=== PATIENT | female | born 2000 | race Caucasian/White ===

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

== ENCOUNTER 2019-08-28 02:36 | Emergency (ER) | payer BC ==
[~2019-08-28] VITALS: Ht 165.1 cm; Wt 60.1 kg
--- NOTE | 2019-08-28 02:53 | NUR ---
PT TO ROOM, REFUSING TO GIVE UP VAPE AND PHONE. EXPLAINED TO PT THAT WE ARE NOW RESPONSIBLE FOR HER SAFETY UNTIL SHE IS ASSESSED BY THE MD. PT IS NOT COOPERATIVE WITH CARE AND STATES SHE WANTS TO LEAVE. EXPLAINED TO PT AGAIN THAT BY SAYING SHE WAS SUICIDAL THAT WE HAD TO HAVE THE MD EVALUATE HER BEFORE RELEASING HER FOR HER OWN SAFETY.
[2019-08-28 03:12] LABS: BASOPHILS # (AUTO) 0.03 x10^3/uL (0-0.3); BASOPHILS % (AUTO) 0 % (0-1); EOSINOPHILS # (AUTO) 0.02 x10^3/uL (0-0.8); EOSINOPHILS % (AUTO) 0 % (1-7); LYMPHOCYTES # (AUTO) 2.48 x10^3/uL (1-6.1); LYMPHOCYTES % (AUTO) 34 % (22-44); MD NO; MEAN CORPUSCULAR HEMOGLOBIN 29.2 pg (27.0-34.8); MEAN CORPUSCULAR HGB CONC 32.9 g/dL (32.4-35.8); MEAN CORPUSCULAR VOLUME 88.9 fL (80-100); MEAN PLATELET VOLUME 8.9 fL (7.4-10.4); MONOCYTES # (AUTO) 0.31 x10^3/uL (0-1.4); MONOCYTES % (AUTO) 4 % (2-9); NEUTROPHILS % (AUTO) 61 % (42-75); PLATELET COUNT 328 x10^3/uL (130-400); RED CELL DISTRIBUTION WIDTH 13.5 % (9.6-15.2)
[2019-08-28 03:23] LABS: ALBUMIN 4.3 g/dL (3.4-5.0); ANION GAP 6 mmol/L (5-15); CALCIUM 9.4 mg/dL (8.5-10.1); CHLORIDE 107 mmol/L (98-107)
[2019-08-28 03:24] LABS: SALICYLATE LEVEL < 1.7 mg/dL (2.8-20.0)
[2019-08-28 03:29] LABS: ALANINE AMINOTRANSFERASE 19 U/L (12-78); ALKALINE PHOSPHATASE 81 U/L (45-117); BILIRUBIN,TOTAL 0.2 mg/dL (0.2-1.0); CREATININE 0.79 mg/dL (0.55-1.02); TOTAL PROTEIN 8.6 g/dL (6.4-8.2)
--- NOTE | 2019-08-28 03:33 | NUR ---
PT HAS BEEN SEEN BY . URINE SENT TO LAB. ROOM SECURED. PER , PT ALLOWED TO STAY IN [facility]RE[facility] UNTIL DETERMINED IF RISK TO SELF.
[2019-08-28] MEDS ORDERED: ESCI20TA10 PO (03:37)
[2019-08-28] MEDS ORDERED: LAMO100T7 PO (03:37)
--- NOTE | 2019-08-28 03:37 | NUR ---
SITTER IN VIEW OF PT, POC DISCUSSED WITH PT.
[2019-08-28 04:01] LABS: AMPHETAMINE SCREEN, URINE Negative (Negative); BARBITURATE SCREEN, URINE Negative (Negative); BENZODIAZEPINE SCREEN, URINE Negative (Negative); CANNABINOID SCREEN, URINE Negative (Negative); COCAINE SCREEN, URINE Negative (Negative); METHADONE SCREEN, URINE Negative (Negative); OPIATE SCREEN, URINE Negative (Negative)
--- NOTE | 2019-08-28 04:05 | NUR ---
PT ASKING TO LEAVE. STATED, "I HAVE THOUGHT THINGS OVER AND I AM NOT SUICIDAL ANYMORE". ERP AWARE, STATED PT NEEDS TO SOBER UP BEFORE SHE CAN BE RE-EVALUATED. EXPLAINED THIS TO PT. PT AGREEABLE AT THIS TIME TO REMAIN HERE TILL KEE UP. PT AWARE THIS CAN TAKE SEVERAL HOURS TO METABOLIZE. PT GIVEN CALL LIGHT TO WATCH TV. SITTER AT DOOR WATCHING PT.
--- NOTE | 2019-08-28 05:18 | NUR ---
MOTHER CALLED TO CHECK ON PT STATUS. PT SLEEPING BUT EASILY AWOKEN. MADE AWARE MOTHER CALLED. MOTHER'S PHONE NUMBER [phone] (ISI).
--- NOTE | 2019-08-28 06:57 | NUR ---
Bedside report from Thelma BARKER, pt care assumed at this time. Pt in bed in suicide secured room w/ sitter at doorway, NAD, breakfast tray ordered. Awaiting re-evaluation once pt is sober & dispo. WCTM.
[2019-08-28 08:00] VITALS: BP 125/65
== END 2019-08-28 08:02 | disposition home or self-care (01) ==
LOC: ED 05:29
DX: R45.851 Suicidal ideations (principal); F41.1 Generalized anxiety disorder; F33.9 Major depressive disorder, recurrent, unspecified
CPT/HCPCS: 36415; 80053; 80307; 84703; 85025; 99284

== ENCOUNTER 2020-05-15 02:38 | Emergency (ER) | payer BC ==
[~2020-05-15] VITALS: Ht 165.1 cm; Wt 62.5 kg
[~2020-05-15 02:38] MED LIST: ESCI20TA10 PO; LAMO100T7 PO
[2020-05-15 02:41] VITALS: BP 107/59
--- NOTE | 2020-05-15 03:23 | NUR ---
X-RAY HELD AT 0315 DUE TO PT WANTING TO CALL HER FATHER TO CONFIRM SHE SHOULD GET IT. NO SIGNS OF ACUTE DISTRESS.
--- NOTE | 2020-05-15 03:29 | NUR ---
PT AMBULATORY TO BATHROOM, STEADY GAIT.
--- NOTE | 2020-05-15 03:35 | NUR ---
PT REFUSED XRAY. ERP AND THIS RN BACK TO BEDSIDE TO GIVE EXTENSIVE EDUCATION ABOUT MEDICATIONS, HOW TO ALTERNATE PAIN MEDICATIONS, CAUSES OF PAIN INCLUDING HITTING A NERVE, THE PHYSIOLOGY OF HEALING, INFECTION, AND THE NECESSITY OF TAKING PERSCRIBED ABX. ALL QUESTIONS ANSWERED, NO SIGNS OF ACUTE DISTRESS.
[2020-05-15] MEDS ORDERED: NEOSPORIN OINT. PKT 1 PACKET ONE (03:42)
--- NOTE | 2020-05-15 04:04 | NUR ---
ETOH NOTED ON PT'S BREATH. PT BREATHILIZED, BLEW A 0.175. PT TOLD SHE COULD HAVE A TAXI VOUCHER OR TO CALL A FRIEND OR UBER UPON D/C. SECURITY NOTIFIED FOR PT SAFETY, SO PT WOULD NOT DECIDE TO DRIVE SELF HOME AFTER RECEIVING D/C INSTURCTIONS. PT RECEIVED TAXI VOUCHER AND HOTEL DINING ROOM CASHIER TO WAIT WITH HER UNTIL TAXI ARRIVED.
== END 2020-05-15 04:11 | disposition home or self-care (01) ==
LOC: ED 03:54
DX: M79.642 Pain in left hand (principal); F10.10 Alcohol abuse, uncomplicated; F17.200 Nicotine dependence, unspecified, uncomplicated; Y90.9 Presence of alcohol in blood, level not specified
CPT/HCPCS: 99281